=== PATIENT | female | born 1990 | race Caucasian/White ===

== ENCOUNTER 2020-02-07 05:59 | Day surgery (SDC) | payer OTHER ==
[2020-02-03 11:41] VITALS: BMI 36.6
[2020-02-03 12:19] LABS: Hemoglobin 13.4 g/dL (12.0-16.0); Mean Corpuscular HGB CONC 35.2 g/dL (32.0-36.0); Mean Corpuscular Hemoglobin 32.2 pg (27.0-31.0); Mean Corpuscular Volume 91.5 fL (78.0-98.0); Mean Platelet Volume 8.1 fL (7.4-10.4); Platelet Count 284 thou/uL (130-400); RBC Distribution Width 11.6 % (11.5-14.5); Red Blood Cell (RBC) Count 4.17 mill/uL (4.20-5.40); White Blood Cell (WBC) Count 6.6 thou/uL (4.8-10.8)
[2020-02-03 12:33] LABS: BHCG - Serum Negative (NEGATIVE); Pregs Control Background? CLEAR/WHITE (CLR/WHITE); Pregs Control Bar Appear? YES (CONTROL BAR)
[2020-02-07] MEDS ORDERED: Bupivacaine PF 0.5% 30 ML VIAL ONE (06:37)
[2020-02-07] MEDS ORDERED: Lidocaine 1% w/Epinephrine 1:100K 20 ML VIAL ONE (06:37)
[2020-02-07] MEDS ORDERED: Famotidine/PF 20 mg/2ml Vial ONE (06:39)
[2020-02-07] MEDS ORDERED: Gabapentin 300 MG CAP ONE (06:39)
[2020-02-07] MEDS ORDERED: CeleCOXIB 100 MG CAP ONE (06:39)
[2020-02-07] MEDS ORDERED: Fentanyl 100 MCG/2 ML VIAL ONE (06:51)
[2020-02-07] MEDS ORDERED: Dexamethasone 20 MG/5 ML VIAL ONE (09:51)
[2020-02-07] MEDS ORDERED: Ondansetron PF 4 MG/2 ML Vial ONE (09:51)
[2020-02-07] MEDS ORDERED: Glycopyrrolate 0.2 MG/ML 5 ML SYRINGE ONE (09:51)
[2020-02-07] MEDS ORDERED: Lidocaine 1% PF 5 ML VIAL ONE (09:51)
[2020-02-07] MEDS ORDERED: Rocuronium Bromide 10 MG/ML (10ML VIAL) ONE (09:51)
[2020-02-07] MEDS ORDERED: PROPOFOL 200 MG/20 ML VIAL ONE (09:51)
[2020-02-07] MEDS ORDERED: Meperidine HCl/PF 25 MG/ML VIAL ONE (09:52)
[2020-02-07] MEDS ORDERED: HYDROcodone/Acetaminophen 7.5/325 mg Tablet ONE (13:09)
[2020-02-07] MEDS ORDERED: HYDROcodone/Acetaminophen 5/325 mg Tablet ONE (13:10)
--- NOTE | 2020-02-07 13:37 | OP ---
DATE OF PROCEDURE: 02/07/2020 PREOPERATIVE DIAGNOSES: 1. Menorrhagia. 2. Pelvic pain. POSTOPERATIVE DIAGNOSES: 1. Menorrhagia. 2. Pelvic pain. PROCEDURES PERFORMED: Robotic-assisted total laparoscopic hysterectomy and bilateral salpingectomy. ANESTHESIA: General endotracheal. SENIOR ECOLOGIST SURGEON: Marina Salgado PA-C ESTIMATED BLOOD LOSS: 20 mL. IVF: 1300 mL of crystalloid. URINE OUTPUT: 520 mL of clear urine. COMPLICATIONS: None. DRAINS: Palomares catheter. PATHOLOGY: Uterus, cervix, bilateral fallopian tubes. FINDINGS: Normal appearing mobile 8-week size uterus sounded to 9 cm. Normal ovaries bilaterally and fallopian tubes. Ureters were intact upon direct inspection in the retroperitoneum and the bladder was intact on back filling of the bladder. There was excellent hemostasis on low pressure check. There were no foreign objects in the vagina. DESCRIPTION OF PROCEDURE: The patient was taken to the operating room, where general anesthesia was obtained without difficulty. The patient was prepped and draped in a sterile fashion in dorsal lithotomy position. Palomares catheter was placed in the bladder. A speculum was placed in the vagina. The anterior lip of the cervix was grasped with a single-tooth tenaculum. The uterus was then sounded to 9 cm, and the СЕРГЕЙ manipulator was assembled with an 8 cm tip and a 4 cm colpotomizer ring. The СЕРГЕЙ manipulator was inserted into the uterus. Colpotomizer ring was advanced snugly to fit the cervix, and instruments were removed out of the vagina. Legs were placed in low lithotomy. Attention was turned to the abdomen. A mixture of 0.5% Marcaine and 1% lidocaine with epinephrine was infiltrated into the umbilicus, and a 12 mm skin incision was made in the umbilicus. The Veress needle was passed into the abdomen noting opening pressure of 3 mmHg. Pneumoperitoneum was obtained without difficulty. The Veress needle was removed. The 12 mm trocar and sleeve were advanced into the abdomen and confirmed placement with robotic camera. The steep Trendelenburg was obtained. Right and left lower quadrant 8 mm robotic trocars were placed under direct visualization after infiltrating with anesthetic. Right upper quadrant 11 mm port was placed for an education administrative assistant under direct visualization after infiltrating with anesthetic. The surgeon console then took control after the robot was docked. The right robotic arm contained a monopolar scissors. Left robotic arm contained a fenestrated bipolar. The right fallopian tube was grasped and elevated. The mesosalpinx was cauterized with the fenestrated and incised with the scissors on cautery, and the fallopian tube was removed out of the abdomen. The utero-ovarian was cauterized with the fenestrated and incised with the scissors as well as the round ligament and this opened up the anterior and posterior leaf of the broad ligament. The posterior leaf of the broad ligament was incised dissecting retroperitoneum away from thin peritoneum by pushing and spreading with the fenestrated, incising with the scissors. The ureter was then identified in the pelvic sidewall, coursing from lateral to medial into underneath the uterine vessels. This was dissected out by tugging down on the medial leaf of the broad ligament and pushing and spreading with the fenestrated. This was identified and visible during the entire case. The anterior leaf of the broad ligament was incised as well, undermining with the fenestrated ensuring a clear window. The vessels were skeletonized with the scissors, and the bladder flap was then created. This was layered out carefully as the patient had 2 previous C-sections. There were minimal adhesions; however, the clear window was identified by undermining with fenestrated and incising with the scissors. This was taken down until the pubocervical fascia was visualized, and then the pubocervical fascia was scored on with the scissors and bluntly dissected down any adventitia of the bladder down well below the level of the colpotomizer ring. Bladder pillows were hemostatic with the fenestrated. Attention was turned to the left side. The fallopian tube was grasped and elevated. The mesosalpinx was cauterized with the fenestrated and incised with the scissors. The utero-ovarian was cauterized and incised as well as the round ligament. The posterior leaf was also incised down to the level of the uterosacral. The medial leaf of the broad ligament was opened up bluntly, achieving hemostasis with short bursts of cautery with the scissors and the ureter was identified coursing underneath the uterine vessel and its proximity to the internal cervical os was noted. This was then able to be visualized during the crucial portions of the procedure. The anterior leaf of the broad ligament was incised down to the level of the contralateral side incision. The vessels were skeletonized, and the vessels were cauterized bilaterally. Incision was made on the anterior colpotomy and then laterally the vessels were carefully incised. The vessels were incised a bit above the level of the internal cervical os, and then the pedicle was incised on the medial aspect of the supporting tissue in an order to allow the pedicle to drop away from the vaginal apex as well as achieving careful hemostasis. The colpotomy was then completed posteriorly, and the uterus was placed into the vagina. The cuff was hemostatic with the fenestrated and copiously irrigated. The scissors were traded out for the needle petrol tanker driver, and the cuff was reapproximated with a 2-0 barbed STRATAFIX suture in a running fashion incorporating vaginal mucosa and posterior peritoneum in each bite. At that time, irrigation was again performed of the pelvis. Low pressure check was performed, and hemostasis was noted. The ureters were again identified bilaterally vermiculating. The bladder was backfilled and noted to have no inadvertent injury or extravasation of saline, and all instruments were removed from the abdomen. The robot was undocked. Pneumoperitoneum was released. The fascia of the camera port was closed with 0 Vicryl in a bcepli-ha-pycak fashion. The skin was closed with 4-0 Monocryl in a subcuticular fashion. Dermabond was applied as the vaginal cuff was checked and noted to have excellent closure and hemostasis. All instruments were removed out of the vagina. The patient tolerated the procedure well. Sponge, lap, and needle counts were correct x2. The patient was taken to recovery room in stable condition. The patient received Ancef 2 g prior to the procedure. Job ID: [id number]
[2020-02-07] MEDS ORDERED: Ondansetron ODT 4 MG TAB ONE (14:42)
== END 2020-02-07 16:15 | disposition home or self-care (01) ==
LOC: MERGE 05:59 → SDC 05:59
PROVIDERS: ATTEND Student in an Organized Health Care Education/Training Program
PROC: 0UT94ZZ Resection of Uterus, Percutaneous Endoscopic Approach (ICD-10-PCS; principal; 2020-02-07)
PROC: 0UT74ZZ Resection of Bilateral Fallopian Tubes, Percutaneous Endoscopic Approach (ICD-10-PCS; principal; 2020-02-07)
DX: N80.0 Endometriosis of uterus (principal)
CPT/HCPCS: 36415; 84703; 85027; 86850; 86900; 86901; 88307; J0690; J1100; J2001; J2175; J2405; J2704; J3010; Q0162; S0020; S0028